=== PATIENT | female | born 1975 | race Caucasian/White ===

== ENCOUNTER 2017-06-02 07:57 | Emergency (ER) | payer OTHER ==
[2017-06-02 08:03] VITALS: BP 125/87; PULSE 88; TEMP 98; BMI 30.7
[2017-06-02] MEDS ORDERED: ERYTHROMYCIN 0.5% OPHTHALMIC OINTMENT 3.5 GM TUBE OS ONE (08:40)
[2017-06-02] MEDS ORDERED: ERYTHROMYCIN 0.5% OPHTHALMIC OINTMENT 3.5 GM TUBE ONE (08:44)
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
== END 2017-06-02 09:10 | disposition home or self-care (01) ==
LOC: JERFT 07:57
DX: S05.02XA Injury of conjunctiva and corneal abrasion without foreign body, left eye, initial encounter (principal); W50.0XXA Accidental hit or strike by another person, initial encounter; Y93.89 Activity, other specified; Y92.89 Other specified places as the place of occurrence of the external cause; Y99.8 Other external cause status
CPT/HCPCS: 99281-25

== ENCOUNTER 2017-08-05 14:49 | Emergency (ER) | payer OTHER ==
[2017-08-05 15:00] VITALS: BP 137/83; PULSE 93; TEMP 98; BMI 29.9
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
== END 2017-08-05 15:49 | disposition home or self-care (01) ==
LOC: JERFT 14:49
DX: M54.5 Low back pain (principal); V43.52XA Car driver injured in collision with other type car in traffic accident, initial encounter; Y92.414 Local residential or business street as the place of occurrence of the external cause; Y93.89 Activity, other specified; Y99.8 Other external cause status
CPT/HCPCS: 99281-25

== ENCOUNTER 2018-07-20 09:29 | Emergency (ER) | payer SELFPAY ==
[2018-07-20 10:03] VITALS: BP 138/80; PULSE 68; TEMP 97.9; BMI 33.3
[2018-07-20] MEDS ORDERED: IBUPROFEN 600 MG TABLET (FP) PO ONE ×2 (10:25→10:26)
--- NOTE | 2018-07-20 10:34 | PDOC ---
History of Present Illness - General Chief Complaint: Injury Stated Complaint: R/O FX Time Seen by Provider: 07/20/18 10:22 History Source: Patient Exam Limitations: No Limitations - History of Present Illness Initial Comments: 07/20/18 10:34 states was walking her dog this morning, slipped on some ice falling backwards and hyper extending her left foot and inverting. States heard a crack and has been unable to stand since that time. Occurred: reports: just prior to arrival, this morning Severity: reports: moderate, severe Pain Location: reports: lower extremity (left foot ankle) Method of Injury: Yes: fall Modifying Factors: improves with: None Loss of Consciousness: no loss of consciousness Associated Symptoms (Fall): denies symptoms Past History - Travel Traveled outside of the country in the last 30 days: No Close contact w/someone who was outside of country & ill: No - Past Medical History Allergies/Adverse Reactions: Allergies Allergy/AdvReac Type Severity Reaction Status Date / Time No Known Allergies Allergy Verified 07/20/18 09:59 Home Medications: Ambulatory Orders Levothyroxine [Synthroid -] 100 mcg PO DAILY 06/02/17 Oxycodone HCl/Acetaminophen [Percocet 5-325 mg Tablet -] 1 - 2 tab PO Q4H PRN # 20 tablet MDD 4 07/20/18 Sertraline HCl [Zoloft] 25 mg PO DAILY 07/20/18 COPD: No Psychiatric Problems: Yes (anxiety) Seizures: Yes - Surgical History Abdominal Surgery: (ovarian cyst) - Suicide/Smoking/Psychosocial Hx Smoking History: Unknown if ever smoked Hx Alcohol Use: No Drug/Substance Use Hx: No Substance Use Type: None Review of Systems - Review of Systems Able to Perform ROS?: Yes Is the patient limited Israeli proficient: Yes Constitutional: Yes: Symptoms Reported, See HPI, Malaise. No: Fever HEENTM: No: Symptoms Reported Respiratory: No: Symptoms reported Musculoskeletal: Yes: Symptoms Reported, See HPI, Joint Pain, Joint Swelling ( left lateral malleoli or swelling) *Physical Exam - Vital Signs Last Vital Signs Temp Pulse Resp BP Pulse Ox 97.9 F 68 18 138/80 98 07/20/18 10:00 07/20/18 10:00 07/20/18 10:00 07/20/18 10:07/20/18 10:00 - Physical Exam General Appearance: Yes: Nourished, Appropriately Dressed, Mild Distress, Moderate Distress HEENT: positive: JACQUELINE, Normal ENT Inspection, TMs Normal Neck: positive: Supple. negative: Tender Respiratory/Chest: positive: Lungs Clear Musculoskeletal: negative: Normal Inspection Extremity: positive: Tender, Swelling. 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, Alert, Normal Response Moderate Sedation - Procedure Monitoring Vital Signs: Procedure Monitoring Vital Signs Temperature 97.9 F 07/20/18 10:00 Pulse Rate 68 07/20/18 10:00 Respiratory Rate 18 07/20/18 10:00 Blood Pressure 138/80 07/20/18 10:00 O2 Sat by Pulse Oximetry (%) 98 07/20/18 10:00 Procedures - Splinting Splint Location: Left: Ankle Pre-Proc Neuro Vasc Exam: normal Splint Type: Yes: Short Leg (ortho glass) Post-Proc Neuro Vasc Exam: normal, unchanged from pre-exam Fortunato Bandage: 3" ED Treatment Course - RADIOLOGY Radiology Studies Ordered: Category Date Time Status ANKLE-LEFT [RAD] Stat Radiology 07/20/18 10:25 Ordered LEG TIB/FIB-LEFT [RAD] Stat Radiology 07/20/18 10:25 Ordered Progress Note - Progress Note Progress Note: Distal fibular fracture, dorsal splint placed, crutches provided, discussed case with Dr Riley office who will see her in office for followup and further treatment *DC/Admit/Observation/Transfer Diagnosis at time of Disposition: Fracture of distal fibula Qualifiers: Encounter type: initial encounter Fracture type: closed Fracture morphology: torus Laterality: right Qualified Code(s): S82.821A - Torus fracture of lower end of right fibula, initial encounter for closed fracture - Discharge Dispostion Disposition: HOME Condition at time of disposition: Stable Decision to Admit order: No - Prescriptions Prescriptions: Oxycodone HCl/Acetaminophen [Percocet 5-325 mg Tablet -] 1 - 2 tab PO Q4H PRN # 20 tablet MDD 4 PRN Reason: Pain - Referrals Referrals: Noah,Oscar I, MD [Staff Physician] - - Patient Instructions Printed Discharge Instructions: Fibula Shaft Fracture Additional Instructions: Rest, ice to area on and off for 15 minutes 4-6 times a day Avoid heavy lifting or exercise until pain and swelling is resolved or until further directed Keep area highly elevated to reduce swelling Use splints/Fortunato wrap as directed Followup with orthopedist in one to 2 days if not improving, if significantly improved may wait one week for followup with orthopedist May use Percocet one or 2 tablets every 6 hours as needed for severe pain - Post Discharge Activity Forms/Work/School Notes: Back to Work
== END 2018-07-20 12:10 | disposition home or self-care (01) ==
LOC: JERFT 09:29
PROC: 2W3QX1Z Immobilization of Right Lower Leg using Splint (ICD-10-PCS; principal; 2018-07-20)
DX: S82.821A Torus fracture of lower end of right fibula, initial encounter for closed fracture (principal); W00.2XXA Other fall from one level to another due to ice and snow, initial encounter; Y93.K1 Activity, walking an animal; Y92.480 Sidewalk as the place of occurrence of the external cause; Y99.8 Other external cause status
CPT/HCPCS: 73590-TC-LT-FY; 73610-TC-LT-FY; 99281-25